=== PATIENT | male | born 1945 | race Caucasian/White ===

== ENCOUNTER 2016-12-10 10:05 | Emergency (ER) | payer MEDICARE, BC ==
[2016-12-10] MEDS ORDERED: OXYCODONE HCL 5 MG TABLET PO ONE (10:14)
[2016-12-10] MEDS ORDERED: ONDANSETRON HCL 4 MG ODT TAB PO ONE (10:14)
[2016-12-10 10:19] VITALS: TEMP 98.6; BMI 28.7
--- NOTE | 2016-12-10 10:25 | EDPRACDOC ---
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 FALL DOWN 3 STEPS. LEFT SHOULDER PAIN. BROUGHT BY EMS. NO LOC. PAIN 5/10 LEFT SHOULDER PAIN. FALL HAPPENED AT HOME OUTSIDE ON ICE. NO OTHER COMPLAINTS. Pain Severity: Reports: Severe Injuries/Pain Location: Reports: upper extremity Allergies/Adverse Reactions: Allergies No Known Allergies Allergy (Verified 01/08/13 09:34) Home Medications: Ambulatory Orders Aspirin [Aspir 81] 81 mg PO DAILY 01/08/13 CloNIDine (Antihypertensive) [Catapres] 0.2 mg PO BID 01/08/13 Felodipine [Felodipine ER] 10 mg PO DAILY 01/08/13 Insulin Detemir [Levemir] 25 unit SQ BID 01/08/13 Lisinopril-Hydrochlorothiazide [Zestoretic 20/25, Prinzide 20/25] 1 tab PO DAILY 01/08/13 Lovastatin 20 mg PO DAILY 01/08/13 Ondansetron [Zofran Odt] 4 mg PO Q6H PRN #10 tab.rapdis 12/10/16 Oxycodone HCl [Roxicodone] 5 - 10 mg PO Q4 PRN #20 tablet 12/10/16 ED Past Medical History - History Reviewed Yes Nurses notes reviewed and agree except as marked - Patient Medical History Cardiac History: Reports: Hypertension GI/ History: Reports: Renal Disease Systemic History: Denies: Cancer EDM Review of Systems - Review of Systems ROS Negative Except as Marked: Yes All systems reviewed and were negative except as marked - Physical Exam Constitutional: Alert (Awake), No apparent distress Oriented to: Time, Person, Place Last recorded Vital Signs: Oxygen Pulse Oxygen Saturation O2 Device Oxygen Flow Rate Fraction of Inspired Oxygen ( FIO2) - HEENT Head: Normal ( normocephalic) Eye Exam: Normal (PERRL, EOMI, Sclera white) Oropharynx: Normal (Pharynx:Moist without exudate,Gums-no swelling) Nose: No Symptoms Reported (septum midline) Neck: Normal (FROM, trachea at midline) - Respiratory/Cardiovascular Respiratory: Normal - CTA (BBS clear to auscultation without adventitious sounds ) Cardiovascular: Normal (RRR without murmur, gallop or rub) - GI Auscultation: Normal (NABS) Palpation: Normal (Soft,No rebound or guarding, non distended) Tenderness: Non tender Correa's Sign: Negative - Musculoskeletal Back: Normal (Non-Tender) Extremities: Normal (Normal tone, Pulses 2+ No cyanosis or edema, FROM), Other ( LEFT SHOULDER PAIN WITH PALPATION. UNABLE TO ROM DUE TO PAIN. NEUROVASC INTACT DISTALLY.) - Integumentary Skin: Normal, Warm, Dry Lymphatics: Normal (no adenopathy) - Neurologic Memory Impaired: Normal Motor Function: Normal (Normal tone, Pulses 2+ No cyanosis or edema, FROM) Cranial Nerve: Normal (CN II-X11 intact sensation, strength 5/5) Cerebellar: Normal Mood Description: Normal Perception: Normal Decision Time to Discharge: 11:15 - Departure Yes I personally saw and evaluated the patient. Disposition: Home Condition: Stable Final Diagnosis: Closed fracture of left proximal humerus Qualifiers: Encounter type: initial encounter Fracture morphology: other fracture Fracture alignment: nondisplaced Qualified Code(s): S42.295A - Other nondisplaced fracture of upper end of left humerus, initial encounter for closed fracture Instructions: Oxycodone, Rapid Release (By mouth), Ondansetron (By mouth), Arm Fracture in Adults (ED) Education/Counseling Given To: Patient, Family Member Education/Counseling Given Regarding: Diagnosis, Treatment, Follow Up Referrals: Julio Zavala MD [Staff Physician] - 1-2 days Prescriptions: New Ondansetron [Zofran Odt] 4 mg PO Q6H PRN #10 tab.rapdis PRN Reason: Nausea/Vomiting Oxycodone HCl [Roxicodone] 5 - 10 mg PO Q4 PRN #20 tablet PRN Reason: Pain No Action Aspirin [Aspir 81] 81 mg PO DAILY Lovastatin 20 mg PO DAILY Felodipine [Felodipine ER] 10 mg PO DAILY Lisinopril-Hydrochlorothiazide [Zestoretic , Prinzide ] 1 tab PO DAILY Insulin Detemir [Levemir] 25 unit SQ BID CloNIDine (Antihypertensive) [Catapres] 0.2 mg PO BID
--- NOTE | 2016-12-10 11:11 | DIRPT ---
CLINICAL DATA: Fell on ice today EXAM: LEFT HUMERUS - 2+ VIEW COMPARISON: None. FINDINGS: Comminuted fracture left humeral neck with mild displacement. Fracture of the greater tuberosity. Left shoulder joint in normal alignment. No other fracture identified. IMPRESSION: Comminuted fracture left humeral neck with mild displacement Electronically Signed By: Froilan Grant M.D. On: 12/10/2016 11:09
--- NOTE | 2016-12-10 11:14 | DIRPT ---
CLINICAL DATA: Slipped on ice. Fall today EXAM: LEFT SHOULDER - 2+ VIEW COMPARISON: None. FINDINGS: Comminuted fracture left humeral neck with mild displacement. Left shoulder joint in normal alignment. Distal clavicle normal. No fracture of the scapula or visualized ribs. IMPRESSION: Comminuted fracture left humeral neck. Electronically Signed By: Froilan Grant M.D. On: 12/10/2016 11:11
[2016-12-10 11:25] VITALS: BP 148/81; PULSE 79
== END 2016-12-10 11:28 | disposition home or self-care (01) ==
LOC: ED 10:05
DX: S42.295A Other nondisplaced fracture of upper end of left humerus, initial encounter for closed fracture (principal); W10.9XXA Fall (on) (from) unspecified stairs and steps, initial encounter; Y93.9 Activity, unspecified
CPT/HCPCS: 73030; 73060; 99283; A9270; J3490